=== PATIENT | male | born 1945 | race Caucasian/White ===

== ENCOUNTER → 2020-01-02 06:18 | Outpatient (CLI) | payer MEDICARE, SELFPAY ==
[2019-08-19 11:27] VITALS: BMI 27.6
--- NOTE | 2020-01-02 14:39 | STRESSREP_ITS ---
Stress Test Report Date: 01/02/2020 Procedure: Exercise tolerance test/imaging study Indications: CAD Consent: Per the patient Procedure: The patient exercised on a Keaton protocol for 8 minutes achieving a peak heart rate of 150 bpm (101 % predicted maximal heart rate) with a peak blood pressure 146/84 mmHg and a peak MET capacity of 10 METs. The baseline ECG demonstrated sinus rhythm. The peak exercise ECG demonstrated no significant ischemic changes. EKG during recovery revealed no significant ischemic changes [There were no significant cardiac dysrhythmias pretest, during exercise, or recovery]. The functional capacity was considered [normal for age]. Patient had chest tightness with exertion which resolved in the recovery period. The examination was discontinued secondary to achieving target heart rate. Impression: 1. Technically adequate (percent predicted maximal heart rate greater than 85%) exercise tolerance test 2. Stress test is negative for exercise-induced EKG changes of ischemia 3. The test test is positive for exercise-induced chest pain 4. Functional capacity is normal for age 5. Nuclear images pending Myocardial perfusion imaging study: Technique: The patient was injected with 11 mCi of technetium 99m Cardiolite and subsequently rest SPECT Cardiolite nuclear imaging was obtained in the horizontal long, vertical long, and short axis views. The patient exercised on a Keaton protocol. Please see above for details. The patient was injected with 33 mCi of technetium 99m Cardiolite and subsequently stress SPECT Cardiolite nuclear imaging was obtained in the horizontal long, vertical long, and short axis views. A gated Cardiolite study at peak stress was obtained. Interpretation: Rest and stress SPECT Cardiolite nuclear imaging status post realignment, normalization, and attenuation correction, demonstrates mild decrease in the radioisotope uptake in the inferior wall during rest and stress which gets better on the attenuation corrected images suggestive of diaphragmatic attenuation artifact. There is also mildly decreased radioisotope uptake in the apex on the stress images compared to the rest images suggestive of mild apical ischemia. The gated Cardiolite study demonstrates no significant regional wall motion abnormalities. The reported LVEF is greater than 70 %. Impression: 1. There is mild apical ischemia. 2. The gated Cardiolite study reports an LVEF of greater than 70 %. This note was generated with [employer] software. It may contain incorrect words, spelling, and punctuation that were not noted in checking the note before signing.
== END ==
PROVIDERS: PCP Family Medicine; Referring Provider Specialist; Visit Provider Specialist
DX: Z95.5 Presence of coronary angioplasty implant and graft (principal)
CPT/HCPCS: 78452; 93017; A9500; A4216

== ENCOUNTER → 2023-08-31 | Outpatient (CLI) | payer MEDICARE, SELFPAY ==
--- NOTE | 2023-09-03 11:07 | STRESSREP_ITS ---
Stress Test Report Date: 08/31/2023 Procedure: Exercise tolerance test/imaging study Indications: Chest pain Consent: Per the patient Procedure: The patient exercised on a Keaton protocol for 6 minutes and 30 seconds achieving a peak heart rate of 115 bpm (79% predicted maximal heart rate) with a peak blood pressure 140/68 mmHg and a peak MET capacity of 8.5 METs. The baseline ECG demonstrated normal sinus rhythm. The peak exercise ECG demonstrated no significant ischemic changes. EKG during recovery revealed no significant ischemic changes [There were no cardiac dysrhythmias pretest, during exercise, or recovery]. The functional capacity was considered normal for age. There was [no complaint of chest discomfort during exercise or recovery]. The examination was discontinued secondary to dyspnea, bilateral feet pain. Impression: 1. Inability to reach 85% of maximal age-predicted heart rate decreases the sensitivity of this test 2. Stress test is negative for exercise-induced EKG changes of ischemia 3. The test test is negative for exercise-induced chest pain 4. Functional capacity is normal for age 5. Nuclear images pending Myocardial perfusion imaging study: Technique: The patient was injected with 11.8 mCi of technetium 99m Cardiolite and subsequently rest SPECT Cardiolite nuclear imaging was obtained in the horizontal long, vertical long, and short axis views. The patient exercised on a Keaton protocol. Please see above for details. The patient was injected with 33 mCi of technetium 99m Cardiolite and subsequently stress SPECT Cardiolite nuclear imaging was obtained in the horizontal long, vertical long, and short axis views. A gated Cardiolite study at peak stress was obtained. Interpretation: Rest and stress SPECT Cardiolite nuclear imaging status post realignment, normalization, and attenuation correction, demonstrates mild decreased uptake in the apex on the stress images compared to the rest images suggestive of apical ischemia. There is also mild fixed inferior defect prior to attenuation correction that improves after attenuation correction suggestive of diaphragmatic attenuation artifact. The gated Cardiolite study demonstrates no significant regional wall motion abnormalities. The reported LVEF is 68%. Impression: 1. There is evidence of mild apical ischemia. 2. The gated Cardiolite study reports an LVEF of 68%. This note was generated with [employer] software. It may contain incorrect words, spelling, and punctuation that were not noted in checking the note before signing.
== END | disposition home or self-care (01) ==
LOC: CVS 07:04
PROVIDERS: PCP Family Medicine; Referring Provider Nurse Practitioner Gerontology; Visit Provider Nurse Practitioner Gerontology
DX: R07.9 Chest pain, unspecified (principal); I10 Essential (primary) hypertension; Z95.5 Presence of coronary angioplasty implant and graft
CPT/HCPCS: 78452; 93017; A9500; A4216

== ENCOUNTER → 2023-10-04 | Day surgery (SDC) | payer MEDICARE, SELFPAY ==
--- NOTE | 2023-09-12 12:55 | RAD_ITS ---
STUDY: X-RAY CHEST REASON FOR EXAM: Male, 78 years old. Abnormal stress test. TECHNIQUE: Frontal and lateral views of the chest. COMPARISON: None. FINDINGS: Hyperinflation. There is no demonstrated pleural abnormality. Mild cardiomegaly with aortic tortuosity and calcification. Normal mediastinum and danielle. Normal visualized pulmonary arteries. Diffuse mild thoracic spondylosis. Normal visualized ribs, clavicles, and shoulders. No abnormality of the visualized soft tissue structures of the upper abdomen. RAD/Chest PA and Lateral IMPRESSION: Cardiomegaly with aortic tortuosity and mild hyperinflation. No active or acute cardiopulmonary disease. Electronically Signed: Gerardo Gonsales MD at 14:29 [facility] ,
[2023-09-12 13:41] LABS: Absolute Lymphocyte Count 1.79 X10^3/uL (0.83-4.51); Basophil# 0.05 X10^3/uL; Basophil% 0.6 % (0-1); Eosinophil# 0.34 X10^3/uL; Eosinophils% 4.3 % (0-5); Hematocrit 44.9 % (40-54); Hemoglobin 15.3 g/dL (13.0-16.5); Lymphocyte # 1.79 X10^3/ul (0.83-4.51); Lymphocyte % 22.7 % (19-41); Mean Corp Hgb Conc 34.1 g/dL (32-36); Mean Corpuscular Hgb 31.7 pg (27.0-32.0); Mean Corpuscular Volume 93.2 fL (80-94); Mean Platelet Vol. 10.8 fl (6.2-12.0); Monocyte# 0.67 X10^3/uL; Monocyte% 8.5 % (0-10); NRBC Flagged by Analyzer 0 % (0-5); Neutrophil # 5.02 X10^3/uL (2.7-7.7); Neutrophil % 63.5 % (47-70); Platelet Count 203 K/mm3 (150-450); RBC Distribution Width CV 13.8 % (11.6-14.6); RBC Distribution Width SD 46.7 fl (35.1-43.9); Red Blood Count 4.82 M/mm3 (4.6-6.2); White Blood Count 7.9 K/mm3 (4.4-11.0)
[2023-09-12 14:02] LABS: AST(SGOT) 23 U/L (15-37); Alanine Aminotransfer ALT/SGPT 36 U/L (16-61); Albumin, Serum 3.8 g/dL (3.2-5.0); Alkaline Phosphatase 53 U/L (45-117); Anion Gap 5 (5-15); BUN 14 mg/dL (7-18); Calcium,Total 8.6 mg/dL (8.5-10.1); Chloride 105 mmol/L (98-107); Cholesterol 152 mg/dL (200); Creatinine, Serum 1.27 mg/dL (0.70-1.30); EST Glomerular Filtration Rate 59 mL/min (>60); Est Glom Filt Rate - Afr Amer 71 mL/min (>60); Globulin 3.8 g/dL (2.2-4.2); Glucose 94 mg/dL (74-106); High Density Lipoprotein 36 mg/dL; Potassium 4.3 mmol/L (3.5-5.1); Protein, Total 7.6 g/dL (6.4-8.2); Sodium Level 139 mmol/L (136-145); Triglycerides 193 mg/dL; Very Low Density Lipoprotein 39 mg/dL (5-40)
--- NOTE | 2023-09-25 16:07 | HP.PCM_ITS ---
History and Physical Date of Admission: 10/04/23 Patient presents for a cardiac catheterization, following an abnormal stress test, and complaints of chest pressure. 02/19/2019:77-year-old male with past medical history of coronary artery disease status post stents to the RCA (4X 32 mm Synergy drug-eluting stent), circumflex (3X 12 mm Synergy), LAD (2.5X 8 mm Synergy, 2.75X 12 mm Synergy) in May 2018 followed by a stress test in July 2018 which was positive resulting in a cardiac cath in July 2018 that showed patent stents with moderate stenosis in the RPL and distal circumflex coming to the office with complaints of pain in the left sternal region that is reproducible to palpation and epigastric region.? This is not related to exertion.? At the time of [place] that resulted in stents to the RCA and circumflex followed by staged PCI of LAD, he had more severe chest pain that was sharp retrosternal radiating to the back, jaw and left arm.? This chest pain is different at this time. 08/19/2019: Patient is doing well overall he does occasionally get heartburn sometimes back pain which he believes is musculoskeletal. 08/24/2021: Patient is doing well from a cardiovascular standpoint. He had back issues this summer and that decreased his exercise capacity. Denies any chest pain. He does get mild shortness of breath when he goes uphill. 09/12/22: Patient is doing well from a cardiac standpoint. He occasionally gets chest pressure under stressful situations. He is physically active as a hoffman and does not get chest discomfort when he is exerting himself. His chest pain is also different from the chest pain he had at the time of [place]. 05/16/2023: Patient is doing overall well from a cardiovascular standpoint. At the time of his [place] patient had sharp retrosternal chest pain that was radiating to his back and also to his left arm and jaw. He does not have the symptoms at this time. He had some back discomfort few weeks back that resolved after seeing a chiropractor. He was having leg cramps when he was taking Zetia. He stopped the Zetia and his leg cramps have resolved. He was getting leg cramps with Crestor as well. Atorvastatin was tried and he could not tolerate that as well. 08/10/2023:From a cardiac standpoint, the patient is doing well. He states that he does feel his heart beating in his throat when his blood pressures is elevated. He does acknowledge a midsternal chest pressure/heaviness with elevated blood pressures at home. He states this is not similar to his previous cardiac events. He does acknowledge SOB with exertion over the last few days- this is newer. He denies Orthopnea, and PND. He does not have bleeding issues; no blood in urine, stool or nosebleeds. He does acknowledge a decrease in energy level over the last week. He denies myalgias, or claudication. He does not have edema, or sudden weight gain. He denies dizziness, lightheadedness, syncopal or near syncopal episodes, and headaches. He states his blood pressures at home have been 150/90's. His carvedilol was increased to 6.25mg twice daily. Intake Vital Signs See EMR Allergies See EMR Medications See EMR PFS Medical History Dyslipidemia Essential hypertension Hypothyroidism Surgical History H/O right and left heart catheterization H/O right coronary artery stent placement History of cholecystectomy (~03/2020) History of coronary artery stent placement Family History Father Congestive heart failureSister Congestive heart failure Social History Smoking Status: Never smoker alcohol intake: never substance use type: does not use caffeine: Yes Type: coffee Number of servings: 1 ROS Const Const: Positive for fatigue; Negative for weakness, fever(s), headache(s), chills, frequent falls, weight gai n or weight loss Eyes Eyes: Negative for blind spots, loss of peripheral vision, transient loss of vision, blurry vision, change in vision, double vision, floaters or tunnel v ision ENT ENT: Negative for headache(s), dizziness, Nosebleed/epistaxis, balance problems or neck pain Cardio Chest Pain: Yes Frequency: other Character: other (pressure/heaviness) Location: mid sternal Palpitations: Yes (occasional ) Edema: None Muscle aches with walking: None Resp Respiratory: Positive for SOB with activity; Negative for SOB at rest or SOB orthopnea\SOB lying down GI GI: Negative nausea, vomiting, heartburn, bloating, vomiting blood/hematemesis, bright, red blood in stools or black,tarry stools Musc Musc: Negative for muscle aches/ myalgia, muscle weakness, joint pain or balance problems Neuro Neuro: Negative for dizziness, lightheadedness, near syncope, syncope, orthostatic symptoms, frequent falls, headache(s), weakness, blurry vision or double vision Jean Hematologic/Lymphatic: Negative for easy bleeding or easy bruising Endo Endo: Positive for fatigue Cardiology Exam Const Appearance: cooperative; Negative acute distress Nutritional Appearance: well nourished and overweight Orientation: alert and oriented x3 Head Head: normal to inspection, normocephalic and atraumatic Ears: hearing grossly normal bilaterally Nose: external nose normal Face and Sinus: face symmetric Eyes General: appearance normal, both eyes and all related structures Eyelids: eyelids normal Conjunctivae: conjunctivae normal Neck Neck: trachea midline and no JVD Chest Chest inspection: normal inspection of the chest and symmetric chest movement; Negative pursed lip breathing Auscultation: Bilateral: Clear to Auscultation Cardio Rate: regular rate Rhythm: regular rhythm Heart sounds: S1 normal and S2 normal No Murmurs GI GI: normal to inspection Neuro General: patient alert, patient awake and patient oriented x3 Gait: Negative ataxic Skin Skin: no rashes or lesions noted; Negative atrophy or jaundice Extremities Pulses: Normal: Right Posterior Tibial Pulse, Left Posterior Tibial Pulse, Right Radial Pulse and Left Radial Pulse Lower Extremity Edema: None: Bilateral Musculoskel Musculoskeletal: No joint tenderness Psych Psychological: normal affect Supplemental Info Supplemental Information Stress test 01/02/2020: Procedure: Exercise tolerance test/imaging study Indications: CAD Consent: Per the patient Procedure: The patient exercised on a Keaton protocol for 8 minutes achieving a peak heart rate of 150 bpm (101 % predicted maximal heart rate) with a peak blood pressure 146/84 mmHg and a peak MET capacity of 10 METs. The baseline ECG demonstrated sinus rhythm. The peak exercise ECG demonstrated no significant ischemic changes. EKG during recovery revealed no significant ischemic changes [There were no significant cardiac dysrhythmias pretest, during exercise, or recovery]. The functional capacity was considered [normal for age]. Patient had chest tightness with exertion which resolved in the recovery period. The examination was discontinued secondary to achieving target heart rate. Impression: 1. Technically adequate (percent predicted maximal heart rate greater than 85%) exercise tolerance test 2. Stress test is negative for exercise-induced EKG changes of ischemia 3. The test test is positive for exercise-induced chest pain 4. Functional capacity is normal for age 5. Nuclear images pending Myocardial perfusion imaging study: Technique: The patient was injected with 11 mCi of technetium 99m Cardiolite and subsequently rest SPECT Cardiolite nuclear imaging was obtained in the horizontal long, vertical long, and short axis views. The patient exercised on a Keaton protocol. Please see above for details. The patient was injected with 33 mCi of technetium 99m Cardiolite and subsequently stress SPECT Cardiolite nuclear imaging was obtained in the horizontal long, vertical long, and short axis views. A gated Cardiolite study at peak stress was obtained. Interpretation: Rest and stress SPECT Cardiolite nuclear imaging status post realignment, normalization, and attenuation correction, demonstrates mild decrease in the radioisotope uptake in the inferior wall during rest and stress which gets better on the attenuation corrected images suggestive of diaphragmatic attenuation artifact. There is also mildly decreased radioisotope uptake in the apex on the stress images compared to the rest images suggestive of mild apical ischemia. The gated Cardiolite study demonstrates no significant regional wall motion abnormalities. The reported LVEF is greater than 70 %. Impression: 1. There is mild apical ischemia. 2. The gated Cardiolite study reports an LVEF of greater than 70 %. Assessment and Plan Assessment and Plan (1) Coronary artery disease: Status: Acute Qualifiers: Coronary Disease-Associated Artery/Lesion type: [place] artery [place] vs. transplanted heart: [place] heart Associated angina: without angina Qualified Code(s): I25.10 - Atherosclerotic heart disease of [place] coronary artery without angina pectoris Plan: Patient has a history of coronary artery disease. He does acknowledge occasional chest pressure, fatigue, and dyspnea on exertion. His most recent stress test demonstrated mild apical ischemia. His most recent cardiac catheterization from 2018 was reviewed. Would like to proceed with a cardiac catheterization to further assess this. (2) History of coronary artery stent placement: Status: Resolved Comment: 06/21/2018, stent placement A 2.5 mm (D) x8 mm (L), Synergy MR stent. Stent placement 2.75 mm (D) x 12mm (L), Synergy MR stent performed by [facility] Plan: Patient has a history of coronary artery disease with stent placement in 2018. He does acknowledge occasional chest pressure, fatigue, and dyspnea on exertion. His most recent stress test demonstrated mild apical ischemia. His most recent cardiac catheterization from 2018 was reviewed. Would like to proceed with a cardiac catheterization to further assess this.
[2023-10-03 07:30] VITALS: BMI 28.1
--- NOTE | 2023-10-05 08:14 | CL.D_ITS ---
Patient Name: DAYTON CERDA Study Date: 10/04/2023 Performing: Blanca Corey MD Ht: 70 inches 177.8 cm : 1945 Wt: 196.2 lbs 88.9 kg Age: 78 Gender: male BSA: 2.07 PROCEDURE(S) PERFORMED [id number])[facility] CLINICAL PROFILE AND INDICATIONS Indications: Worsening Angina Heart Failure: None CONCLUSIONS Mild nonobstructive CAD as described. Widely patent prior stents. RECOMMENDATIONS DESCRIPTION OF PROCEDURE The patient arrived to the procedure lab. The risks and benefits of the procedure as well as a full description of our services here and current unavailability of surgical backup were fully explained to the patient and/or their significant other prior to the catheterization. The Timeout was completed, verifying the correct patient and procedure. The patient's procedural site was prepped and draped in the usual fashion. Local anesthetic was given subcutaneously to right radial region with Lidocaine 2%. Using a modified Seldinger technique, arterial access was obtained via the right radial artery, a 6Fr sheath was inserted. Left Coronary Artery selective angiography was performed in multiple views using a 5 Fr. JL3.5 catheter. LV to AO pullback pressures were then recorded. Right Coronary Artery selective angiography was then performed in multiple views using a 5 Fr. JR 4 catheter.The arterial sheath was pulled and a TR Band was applied for hemostasis CORONARY ANGIOGRAPHY DOMINANCE: Right Dominant LEFT MAIN: Mild luminal irregularities LEFT ANTERIOR DESCENDING ARTERY: Mild diffuse disease in the proximal and mid portion. Patent stents CIRCUMFLEX ARTERY: Mild luminal irregularities RIGHT CORONARY ARTERY: 30% ostial stenosis, mild diffuse disease in the distal portion. Widely patent stent in the RCA. RPL has a 40% stenosis in the proximal portion. COMPLICATIONS No Complications PROCEDURE MEDICATIONS Fentanyl 50 mcg IV Versed 1 mg IV Oxygen: 2 L/min via nasal cannula Heparin given IA 10/04/2023 12:52:11 Verapamil 2.5mg, Ntg 100mcgs, 3000 units of Heparin given IA 10/04/2023 12:52:11 SUMMARY OF HEMODYNAMIC DATA Time AIR REST ECG 09:19:03 AO 98/49 (69) SA 12:55:47 AO 111/49 (79) 13:02:23 LV 131/0, 14 13:08:24 LV 128/0, 13 13:08:32 LVp 121/2, 18 13:08:46 AOp 124/59 (86) 13:08:53 Signed By Blanca Corey MD On 10/05/2023 08:13:39 Blanca Corey MD
== END | disposition home or self-care (01) ==
LOC: CLSP 08:56
PROVIDERS: Nurse Practitioner Gerontology; PCP Family Medicine; Referring Provider Specialist; Visit Provider Specialist
DX: I25.119 Atherosclerotic heart disease of native coronary artery with unspecified angina pectoris (principal); I10 Essential (primary) hypertension; R94.39 Abnormal result of other cardiovascular function study; Z95.5 Presence of coronary angioplasty implant and graft; Z79.82 Long term (current) use of aspirin; Z79.899 Other long term (current) drug therapy
CPT/HCPCS: 36415; 71046; 80053; 80061; 85025; 93454; 99152; 99153; J7040; C1769; C1894